=== PATIENT | female | born 1970 | race African-American/Black ===

== ENCOUNTER 2016-07-07 14:09 | Inpatient (IN) | payer OTHER ==
[~2016-07-07] VITALS: Ht 157.5 cm; Wt 93.1 kg
[~2016-07-07 14:09] MED LIST: ALEVE220 M2 PO; ATARAX,VISTARIL50 MG PO; CALCIUM 500 MG1 EACH PO; DILAUDID2 MG PO; FENTANYL1 EAC4 TD; INDOCIN50 MG PO; IRON325 M1 PO; NOHOMEMEDS; NORCO 5/3251 TABLET PO; SPRINTEC1 EACH PO; TRAMADOL HCL50 MG PO; ULTRAM50 MG PO; ZOFRAN4 MG PO
[2016-07-07 15:57] LABS: HEMATOCRIT 33.6 % (36.0-46.0); MCH 25.4 PG (29.0-34.0); MCHC 32.1 G/DL (30.0-36.0); MCV 79.1 FL (83-99); MEAN PLAT.VOLUME 10.6 uM^3 (9.5-12.4); PLATELET COUNT 235 K/uL (156-360); RBC DIS.WIDTH-CV 16.6 % (11.8-14.6); RBC DIS.WIDTH-SD 46.9 % (39-53); RED BLOOD COUNT 4.25 M/uL (3.80-5.20)
[2016-07-07 16:04] LABS: WHITE BLOOD COUNT 24.5 K/uL (4.1-10.2)
[2016-07-07 16:11] LABS: CHLORIDE 107 mEq/L (99-109); POTASSIUM 3.7 mEq/L (3.7-5.4); SODIUM 139 mEq/L (136-147)
[2016-07-07 16:13] LABS: GLUCOSE 81 mg/dL (70-99)
[2016-07-07 16:14] LABS: ANION GAP 12 MEQ/L (2-14)
[2016-07-07 16:17] LABS: GFR ESTIMATE (CALCULATED) > 59 mL/min/; UREA NITROGEN (BUN) 14 mg/dL (9-23)
[2016-07-07 16:41] LABS: EOSINOPHIL (%) 0.1 % (0-5); HEMATOLOGY COMMENT 1 SMEAR COMPATIBLE; IMMATURE GRANULOCYTE (%) 4.5 % (0.0-0.7); IMMATURE GRANULOCYTE COUNT 11.1 K/uL; LYMPHOCYTE COUNT 1.2 K/uL (1.0-2.8); MONOCYTE (%) 1.8 % (3-12); MONOCYTE COUNT 0.5 K/uL (0-0.8); NEUTROPHIL (%) 88.5 % (45-76); NEUTROPHIL COUNT 21.6 K/uL (1.8-6.4); PLAT.SUFFICIENCY ADEQUATE; USER ID SS
[2016-07-07] MEDS ORDERED: COMPAZINE10 MG PO (16:59)
[2016-07-07] MEDS ORDERED: ZOFRAN8 MG PO (16:59)
[2016-07-07] MEDS ORDERED: LIVIXIL PAK 2.1 EACH TP (17:04)
[2016-07-07 19:43] VITALS: BP 127/78
[2016-07-07 22:46] VITALS: BP 119/61
[2016-07-08 07:02] LABS: HEMATOCRIT 31.2 % (36.0-46.0); MCH 25.6 PG (29.0-34.0); MCHC 31.7 G/DL (30.0-36.0); MCV 80.6 FL (83-99); MEAN PLAT.VOLUME 10.9 uM^3 (9.5-12.4); PLATELET COUNT 216 K/uL (156-360); RBC DIS.WIDTH-CV 16.6 % (11.8-14.6); RBC DIS.WIDTH-SD 49.1 % (39-53); RED BLOOD COUNT 3.87 M/uL (3.80-5.20); WHITE BLOOD COUNT 19.5 K/uL (4.1-10.2)
[2016-07-08 07:30] LABS: ANION GAP 8 MEQ/L (2-14); CHLORIDE 107 MEQ/L (99-109); GFR ESTIMATE (CALCULATED) > 59 mL/min/; GLUCOSE 89 mg/dL (70-99); POTASSIUM 4.1 MEQ/L (3.7-5.4); SAMPLE HEMOLYSIS CHECK 0; SAMPLE ICTERIC CHECK 0; SAMPLE LIPEMIA CHECK 0; SODIUM 139 MEQ/L (136-147); UREA NITROGEN (BUN) 15 mg/dL (9-23)
[2016-07-08 07:45] LABS: ABS NEUTROPHIL COUNT 16.74; EOSINOPHIL (%) 0.4 % (0-5); EOSINOPHIL COUNT 0.1 K/uL (0-0.3); IMMATURE GRANULOCYTE (%) 9.1 % (0.0-0.7); IMMATURE GRANULOCYTE COUNT 1.8 K/uL; LYMPHOCYTE COUNT 1.3 K/uL (1.0-2.8); MONOCYTE (%) 0.6 % (3-12); MONOCYTE COUNT 0.1 K/uL (0-0.8); NEUTROPHIL (%) 83.1 % (45-76); NEUTROPHIL COUNT 16.2 K/uL (1.8-6.4); PLAT.SUFFICIENCY ADEQUATE; USER ID CCL
[2016-07-08 08:02] VITALS: BP 123/59
[2016-07-08 16:44] VITALS: BP 116/78
[2016-07-08 22:55] VITALS: BP 116/58
[2016-07-09 06:18] LABS: HEMATOCRIT 30.9 % (36.0-46.0); MCH 25.5 PG (29.0-34.0); MCHC 31.4 G/DL (30.0-36.0); MCV 81.3 FL (83-99); MEAN PLAT.VOLUME 10.8 uM^3 (9.5-12.4); PLATELET COUNT 195 K/uL (156-360); RBC DIS.WIDTH-CV 16.3 % (11.8-14.6); RBC DIS.WIDTH-SD 49.1 % (39-53)
[2016-07-09 06:20] LABS: WHITE BLOOD COUNT 9.8 K/uL (4.1-10.2)
[2016-07-09 06:33] LABS: ANION GAP 8 MEQ/L (2-14); CHLORIDE 107 MEQ/L (99-109); GFR ESTIMATE (CALCULATED) > 59 mL/min/; GLUCOSE 100 mg/dL (70-99); POTASSIUM 4.4 MEQ/L (3.7-5.4); SAMPLE HEMOLYSIS CHECK 0; SAMPLE ICTERIC CHECK 0; SAMPLE LIPEMIA CHECK 0; SODIUM 139 MEQ/L (136-147); UREA NITROGEN (BUN) 17 mg/dL (9-23)
[2016-07-09 07:08] LABS: ABS NEUTROPHIL COUNT 8.09; ANISOCYTOSIS OCC; DELETE MACHINE DIFF? YES; EOSINOPHIL ABS CT 0.29; PLAT.SUFFICIENCY ADEQUATE; USER ID SDF
[2016-07-09 08:00] VITALS: BP 121/71
[2016-07-09 11:13] VITALS: BP 121/71
[2016-07-09] MEDS ORDERED: CLEOCIN300 MG PO (12:40)
[2016-07-09] MEDS ORDERED: DILAUDID4 MG PO (12:40)
[2016-07-18] MEDS ORDERED: KADIAN30 MG PO (15:06)
== END 2016-07-09 14:32 | disposition home or self-care (01) | DRG 601 ==
LOC: EME 14:09 → RME 14:09 → 5EAST 16:41 → EDOF 16:41 → 5EAST 19:36
PROVIDERS: Family Medicine; Physician Assistant
DX: N61.0 Mastitis without abscess (principal); C50.911 Malignant neoplasm of unspecified site of right female breast; D64.81 Anemia due to antineoplastic chemotherapy; D72.829 Elevated white blood cell count, unspecified; Z79.899 Other long term (current) drug therapy
CPT/HCPCS: 76642; 80048; 80053; 83605; 85025; 87040; 96365; 96372; 96374; 96375; 96413; 96417; 99281; 99285; G0463 25; J1100; J1170; J1453; J1650; J2060; J2469; J2505; J3010; J7030; J7050; J9000; J9070

== ENCOUNTER 2016-07-22 18:37 | Emergency (ER) | payer OTHER ==
[~2016-07-22] VITALS: Ht 154.9 cm; Wt 93.1 kg
[~2016-07-22 18:37] MED LIST changes: +CLEOCIN300 MG PO; +COMPAZINE10 MG PO; +DILAUDID4 MG PO; +KADIAN30 MG PO; +LIVIXIL PAK 2.1 EACH TP; +ZOFRAN8 MG PO
[2016-07-22 19:16] LABS: HEMATOCRIT 31.9 % (36.0-46.0); MCH 25.9 PG (29.0-34.0); MCHC 32.3 G/DL (30.0-36.0); MCV 80.2 FL (83-99); MEAN PLAT.VOLUME 9.7 uM^3 (9.5-12.4); PLATELET COUNT 373 K/uL (156-360); RBC DIS.WIDTH-CV 16.6 % (11.8-14.6); RBC DIS.WIDTH-SD 45.6 % (39-53); RED BLOOD COUNT 3.98 M/uL (3.80-5.20)
[2016-07-22 19:26] LABS: CHLORIDE 109 mEq/L (99-109); POTASSIUM 3.9 mEq/L (3.7-5.4); SODIUM 138 mEq/L (136-147)
[2016-07-22 19:28] LABS: GLUCOSE 86 mg/dL (70-99)
[2016-07-22 19:29] LABS: ANION GAP 10 MEQ/L (2-14)
[2016-07-22 19:32] LABS: GFR ESTIMATE (CALCULATED) > 59 mL/min/; UREA NITROGEN (BUN) 11 mg/dL (9-23)
[2016-07-22 19:35] LABS: TROP-I INTERPRETATION NEGATIVE; TROPONIN-I < 0.01 ng/mL (0.0-0.30)
[2016-07-23 00:10] LABS: ANISOCYTOSIS 1+; EOSINOPHIL (%) 0 % (0-5); IMMATURE GRANULOCYTE (%) 3.4 % (0.0-0.7); IMMATURE GRANULOCYTE COUNT 0.5 K/uL; MACROCYTES 1+; MICROCYTOSIS FEW; MONOCYTE (%) 0.7 % (3-12); MONOCYTE COUNT 0.1 K/uL (0-0.8); NEUTROPHIL (%) 89.6 % (45-76); NEUTROPHIL COUNT 14.4 K/uL (1.8-6.4); OVALOCYTES FEW; PLAT.SUFFICIENCY ADEQUATE
[2016-07-23] MEDS ORDERED: DILAUDID2 MG PO (01:50)
[2016-07-23] MEDS ORDERED: MEDROL DOSEPAK4 MG PO (01:50)
[2016-07-23 01:56] VITALS: BP 112/62
== END 2016-07-23 02:05 | disposition home or self-care (01) ==
LOC: EME 18:37
DX: R09.1 Pleurisy (principal); R07.89 Other chest pain; C50.911 Malignant neoplasm of unspecified site of right female breast; Z79.899 Other long term (current) drug therapy
CPT/HCPCS: 71020; 71275; 80048; 83605; 84484; 85025; 85027; 87040; 93005; 99281; 99285; J1100; J1170; J2405

== ENCOUNTER → 2016-08-07 | Outpatient (CLI) | payer OTHER ==
[~2016-08-07] MED LIST changes: +MEDROL DOSEPAK4 MG PO
== END | disposition home or self-care (01) ==
LOC: RAD 14:52 → EDSTATUS 15:00 → RAD 15:00
DX: R07.89 Other chest pain (principal)

== ENCOUNTER 2016-08-21 17:15 | Observation (INO) | payer OTHER ==
[~2016-08-21] VITALS: Ht 154.9 cm; Wt 90.2 kg
[~2016-08-21 17:15] MED LIST changes: +ATIVAN0.5 MG PO
[2016-08-21 17:55] LABS: CHLORIDE 108 mEq/L (99-109); POTASSIUM 4.2 mEq/L (3.7-5.4); SODIUM 141 mEq/L (136-147)
[2016-08-21 17:57] LABS: GLUCOSE 85 mg/dL (70-99)
[2016-08-21 17:58] LABS: ANION GAP 12 MEQ/L (2-14); HEMATOCRIT 28.9 % (36.0-46.0); MCH 27.7 PG (29.0-34.0); MCHC 33.6 G/DL (30.0-36.0); MCV 82.2 FL (83-99); RBC DIS.WIDTH-CV 18.9 % (11.8-14.6); RBC DIS.WIDTH-SD 54.7 % (39-53)
[2016-08-21 18:00] LABS: WHITE BLOOD COUNT 1.4 K/uL (4.1-10.2)
[2016-08-21 18:01] LABS: GFR ESTIMATE (CALCULATED) > 59 mL/min/
[2016-08-21 18:02] LABS: UREA NITROGEN (BUN) 10 mg/dL (9-23)
[2016-08-21 18:08] LABS: TROP-I INTERPRETATION NEGATIVE; TROPONIN-I 0.01 ng/mL (0.0-0.30)
[2016-08-21 19:22] LABS: D-DIMER ELISA 2.93 mg/L FEU (< 0.57); PLATELET COUNT 261 K/uL (156-360)
[2016-08-21 20:02] LABS: TOTAL BILIRUBIN 0.7 mg/dL (0.0-1.0)
[2016-08-21 20:03] LABS: ALKALINE PHOSPHATASE 86 IU/L (3-129)
[2016-08-21 20:06] LABS: DIRECT BILIRUBIN 0.2 mg/dL (0.0-0.3)
[2016-08-21 20:07] LABS: LIPASE 5 U/L (1.0-51.0)
[2016-08-21 20:16] LABS: EOSINOPHIL (%) 0 % (0-5); IMMATURE GRANULOCYTE (%) 1.5 % (0.0-0.7); LYMPHOCYTE COUNT 0.4 K/uL (1.0-2.8); MONOCYTE (%) 2.9 % (3-12); NEUTROPHIL (%) 68.6 % (45-76); NEUTROPHIL COUNT 0.9 K/uL (1.8-6.4)
[2016-08-21] MEDS ORDERED: MS CONTIN,ORAMO30 MG PO (21:13)
[2016-08-21] MEDS ORDERED: NEXIUM20 MG PO (21:14)
[2016-08-21 22:15] LABS: ADD MIUA? NO; BILIRUBIN NEGATIVE; BLOOD NEGATIVE; COLOR YELLOW ((YELLOW)); GLUCOSE (STRIP) NEGATIVE; KETONES 20; LEUKOCYTES NEGATIVE; NITRITE NEGATIVE; PROTEIN (STRIP) NEGATIVE; UCUL ADDED? NO; UROBILINOGEN 0.2 MG/DL (0.2-1.0)
[2016-08-21 22:44] LABS: INFLUENZA A VIRAL ANTIGEN NEGATIVE; INFLUENZA B VIRAL ANTIGEN NEGATIVE
[2016-08-21 23:18] LABS: SPECIFIC GRAVITY 1.061 (1.000-1.030)
[2016-08-22] VITALS (7 sets, daily range): BP systolic 98–128; BP diastolic 51–65
[2016-08-22 06:33] LABS: ALKALINE PHOSPHATASE 62 IU/L (3-129); ANION GAP 8 MEQ/L (2-14); CHLORIDE 108 MEQ/L (99-109); GFR ESTIMATE (CALCULATED) > 59 mL/min/; GLUCOSE 85 mg/dL (70-99); SAMPLE HEMOLYSIS CHECK 0; SAMPLE ICTERIC CHECK 0; SAMPLE LIPEMIA CHECK 0; SODIUM 139 MEQ/L (136-147); UREA NITROGEN (BUN) 13 mg/dL (9-23)
[2016-08-22 06:39] LABS: TOTAL BILIRUBIN 0.5 MG/DL (0.0-1.0)
[2016-08-22 07:09] LABS: HEMATOCRIT 24.4 % (36.0-46.0); MCH 27.6 PG (29.0-34.0); MCHC 33.2 G/DL (30.0-36.0); MCV 83.4 FL (83-99); MEAN PLAT.VOLUME 10.3 uM^3 (9.5-12.4); PLATELET COUNT 210 K/uL (156-360); RBC DIS.WIDTH-CV 19.7 % (11.8-14.6); RBC DIS.WIDTH-SD 59.6 % (39-53); RED BLOOD COUNT 2.93 M/uL (3.80-5.20); WHITE BLOOD COUNT 1.2 K/uL (4.1-10.2)
[2016-08-22 11:51] LABS: HEMATOCRIT 25.2 % (36.0-46.0); MCH 26.9 PG (29.0-34.0); MCHC 32.5 G/DL (30.0-36.0); MCV 82.6 FL (83-99); MEAN PLAT.VOLUME 10.3 uM^3 (9.5-12.4); PLATELET COUNT 203 K/uL (156-360); RBC DIS.WIDTH-CV 19.4 % (11.8-14.6); RBC DIS.WIDTH-SD 58.2 % (39-53); RED BLOOD COUNT 3.05 M/uL (3.80-5.20); WHITE BLOOD COUNT 1.1 K/uL (4.1-10.2)
[2016-08-22 12:07] LABS: EOSINOPHIL (%) 0.9 % (0-5); HEMATOLOGY COMMENT 1 SMEAR COMPATIBLE; IMMATURE GRANULOCYTE (%) 1.8 % (0.0-0.7); LYMPHOCYTE COUNT 0.3 K/uL (1.0-2.8); MONOCYTE (%) 6.4 % (3-12); MONOCYTE COUNT 0.1 K/uL (0-0.8); NEUTROPHIL COUNT 0.7 K/uL (1.8-6.4); PLAT.SUFFICIENCY ADEQUATE; USER ID TLW
[2016-08-23 00:37] VITALS: BP 93/53
[2016-08-23 05:27] VITALS: BP 116/56
[2016-08-23 09:19] VITALS: BP 119/60
[2016-08-23 10:17] LABS: ANION GAP 9 MEQ/L (2-14); CHLORIDE 107 MEQ/L (99-109); GFR ESTIMATE (CALCULATED) > 59 mL/min/; GLUCOSE 95 mg/dL (70-99); POTASSIUM 3.9 MEQ/L (3.7-5.4); SAMPLE HEMOLYSIS CHECK 0; SAMPLE ICTERIC CHECK 0; SAMPLE LIPEMIA CHECK 0; SODIUM 141 MEQ/L (136-147); UREA NITROGEN (BUN) 7 mg/dL (9-23)
[2016-08-23] MEDS ORDERED: NEXIUM20 MG PO (10:48)
[2016-08-23 11:44] LABS: HEMATOCRIT 25.2 % (36.0-46.0); MCH 27.2 PG (29.0-34.0); MCHC 32.5 G/DL (30.0-36.0); MCV 83.4 FL (83-99); MEAN PLAT.VOLUME 10.2 uM^3 (9.5-12.4); PLATELET COUNT 210 K/uL (156-360); RBC DIS.WIDTH-CV 18.9 % (11.8-14.6); RBC DIS.WIDTH-SD 57.8 % (39-53); RED BLOOD COUNT 3.02 M/uL (3.80-5.20)
[2016-08-23 11:45] LABS: WHITE BLOOD COUNT 1.1 K/uL (4.1-10.2)
[2016-08-23 12:08] VITALS: BP 117/58
[2016-08-23 12:42] VITALS: BP 117/58
[2016-08-23] MEDS ORDERED: CHLORASEPTIC177 ML MM (14:37)
== END 2016-08-23 15:33 | disposition home or self-care (01) ==
LOC: EME 17:15 → EDOF 22:46 → 5WEST 22:46 → EDOF 22:46 → 5WEST 23:29
PROVIDERS: Internal Medicine; Physician Assistant
DX: R11.2 Nausea with vomiting, unspecified (principal); C50.919 Malignant neoplasm of unspecified site of unspecified female breast; Z92.21 Personal history of antineoplastic chemotherapy; D70.9 Neutropenia, unspecified; R07.9 Chest pain, unspecified; R06.02 Shortness of breath; R53.1 Weakness; Z79.891 Long term (current) use of opiate analgesic; D64.9 Anemia, unspecified; G43.909 Migraine, unspecified, not intractable, without status migrainosus
CPT/HCPCS: 71020; 71275; 80048; 80053; 80076; 81003; 83690; 84484; 85025; 85027; 85379; 87040; 87502; 93005; 99281; 99285; C9113; G0378; J1170; J1644; J2405; J7030; J7050

== ENCOUNTER 2016-10-25 18:28 | Emergency (ER) | payer OTHER ==
[~2016-10-25] VITALS: Ht 154.9 cm; Wt 92.6 kg
[~2016-10-25 18:28] MED LIST changes: +CHLORASEPTIC177 ML MM; +MS CONTIN,ORAMO30 MG PO; +NEXIUM20 MG PO
[2016-10-25 19:53] LABS: HEMATOCRIT 27.7 % (36.0-46.0); MCH 30.4 PG (29.0-34.0); MCHC 32.5 G/DL (30.0-36.0); MCV 93.6 FL (83-99); NRBC (%) 2.1 /100 WBC (0-0); PLATELET COUNT 335 K/uL (156-360); RBC DIS.WIDTH-CV 16.9 % (11.8-14.6); RBC DIS.WIDTH-SD 56.6 % (39-53); RED BLOOD COUNT 2.96 M/uL (3.80-5.20); WHITE BLOOD COUNT 2.3 K/uL (4.1-10.2)
[2016-10-25 20:02] LABS: CHLORIDE 112 mEq/L (99-109); POTASSIUM 3.9 mEq/L (3.7-5.4); SODIUM 143 mEq/L (136-147)
[2016-10-25 20:04] LABS: GLUCOSE 86 mg/dL (70-99)
[2016-10-25 20:05] LABS: ANION GAP 10 MEQ/L (2-14)
[2016-10-25 20:06] LABS: TOTAL BILIRUBIN 0.6 mg/dL (0.0-1.0)
[2016-10-25 20:07] LABS: ALKALINE PHOSPHATASE 36 IU/L (3-129)
[2016-10-25 20:08] LABS: GFR ESTIMATE (CALCULATED) > 59 mL/min/
[2016-10-25 20:09] LABS: UREA NITROGEN (BUN) 7 mg/dL (9-23)
[2016-10-25 20:18] LABS: QUANTITATIVE HCG < 4.0 MIU/ML
[2016-10-25 20:53] LABS: ADD MIUA? YES; BILIRUBIN NEGATIVE; BLOOD NEGATIVE; COLOR YELLOW ((YELLOW)); GLUCOSE (STRIP) NEGATIVE; KETONES NEGATIVE; LEUKOCYTES TRACE; NITRITE NEGATIVE; PROTEIN (STRIP) 30; SPECIFIC GRAVITY 1.014 (1.000-1.030); UROBILINOGEN 0.2 MG/DL (0.2-1.0)
[2016-10-25 21:15] LABS: BACTERIA NONE SEEN /HPF; EPITHELIAL CELLS RARE /HPF; MUCUS 4+ /LPF; UCUL ADDED? NO; WHITE BLOOD CELLS 30-40 /HPF (0-5)
[2016-10-25 21:41] LABS: CREATINE KINASE 131 IU/L (1-294)
[2016-10-25] MEDS ORDERED: NEURONTIN100 MG PO (23:18)
[2016-10-25 23:45] VITALS: BP 132/78
== END 2016-10-25 23:45 | disposition home or self-care (01) ==
LOC: EME 18:28
DX: G62.9 Polyneuropathy, unspecified (principal); G89.29 Other chronic pain
CPT/HCPCS: 80053; 81003; 82550; 84702; 85027; 99281; 99285; J2060; J2270; J7030

== ENCOUNTER 2016-11-19 07:03 | Day surgery (SDC) | payer OTHER ==
[~2016-11-19] VITALS: Ht 154.9 cm; Wt 98.4 kg
[~2016-11-19 07:03] MED LIST changes: +CYMBALTA60 MG PO; +NEURONTIN100 MG PO; +NEXIUM40 MG PO; +[UNRECOGNIZED DRUG - OTHER] TP
[2016-11-19 07:35] VITALS: BP 137/84
[2016-11-19 16:00] VITALS: BP 155/89
[2016-11-19 19:57] VITALS: BP 105/59
[2016-11-19 23:41] VITALS: BP 105/56
[2016-11-20 02:52] VITALS: BP 101/52
[2016-11-20 07:49] VITALS: BP 99/56
[2016-11-20 11:45] VITALS: BP 113/58
[2016-11-20] MEDS ORDERED: NEURONTIN100 MG PO (14:29)
[2016-11-20] MEDS ORDERED: FLEXERIL10 MG PO (14:30)
[2016-11-20] MEDS ORDERED: DILAUDID2 MG PO (15:01)
== END 2016-11-20 15:49 | disposition home or self-care (01) ==
LOC: SDC 07:03 → 2SOUTH 12:00 → 2EASTP 12:00 → 2SOUTH 12:00 → SDC 14:36 → 2EASTP 15:51
DX: C50.911 Malignant neoplasm of unspecified site of right female breast (principal); K21.9 Gastro-esophageal reflux disease without esophagitis; Z79.899 Other long term (current) drug therapy; Z88.0 Allergy status to penicillin; Z92.21 Personal history of antineoplastic chemotherapy
CPT/HCPCS: 88307; 88341 TC; 88342 TC; G0378; J0131; J0330; J1100; J1170; J2250; J2405; J3010; S0020

== ENCOUNTER 2017-08-05 11:32 | Emergency (ER) | payer OTHER ==
[~2017-08-05] VITALS: Ht 157.5 cm; Wt 83.6 kg
[~2017-08-05 11:32] MED LIST changes: +FLEXERIL10 MG PO
[2017-08-05 12:37] LABS: HEMATOCRIT 40.5 % (36.0-46.0); HEMOGLOBIN 13.3 G/DL (11.9-15.5); MCH 29.3 PG (29.0-34.0); MCHC 32.8 G/DL (30.0-36.0); MCV 89.2 FL (83-99); PLATELET COUNT 273 K/uL (156-360); RBC DIS.WIDTH-CV 14.3 % (11.8-14.6); RBC DIS.WIDTH-SD 46.3 % (39-53); RED BLOOD COUNT 4.54 M/uL (3.80-5.20); WHITE BLOOD COUNT 5.1 K/uL (4.1-10.2)
[2017-08-05 12:49] LABS: CHLORIDE 107 mEq/L (99-109); SODIUM 142 mEq/L (136-147)
[2017-08-05 12:50] LABS: GLUCOSE 99 mg/dL (70-99)
[2017-08-05 12:54] LABS: CREATININE 0.8 mg/dL (0.6-1.3); GFR ESTIMATE (CALCULATED) > 59 mL/min/
[2017-08-05 12:55] LABS: UREA NITROGEN (BUN) 14 mg/dL (9-23)
[2017-08-05 12:56] LABS: TROP-I INTERPRETATION NEGATIVE; TROPONIN-I < 0.01 ng/mL (0.0-0.30)
[2017-08-05 16:03] LABS: TROP-I INTERPRETATION NEGATIVE; TROPONIN-I < 0.01 ng/mL (0.0-0.30)
[2017-08-05 17:05] VITALS: BP 144/89
== END 2017-08-05 17:05 | disposition home or self-care (01) ==
LOC: EME 11:32 → RME 11:32
PROVIDERS: Physician Assistant
DX: R07.9 Chest pain, unspecified (principal); Z85.3 Personal history of malignant neoplasm of breast; Z90.11 Acquired absence of right breast and nipple; Z92.21 Personal history of antineoplastic chemotherapy; Z88.6 Allergy status to analgesic agent; Z88.0 Allergy status to penicillin; Z88.5 Allergy status to narcotic agent
CPT/HCPCS: 71046; 80048; 84484; 85027; 85379; 93005; 99281; 99284